=== PATIENT | male | born 1975 | race American Indian/Alaskan Native ===

== ENCOUNTER 2020-12-12 15:21 | Emergency (ER) | payer SELFPAY ==
[2020-12-12 16:41] LABS: Basophils # (Auto) 0.1 K/mm3 (0.0-0.1); Basophils % (Auto) 1.2 % (0.0-1.8); Eosinophils # (Auto) 0.1 K/mm3 (0.0-0.4); Hematocrit 42.8 % (35.5-45.6); Hemoglobin 14.6 gm/dl (11.8-15.2); Lymphocytes # (Auto) 1.5 K/mm3 (1.2-5.4); Lymphocytes % (Auto) 15.1 % (13.4-35.0); Mean Corpuscular HGB Conc 34 % (32-34); Mean Corpuscular Volume 87 fl (84-94); Monocytes # (Auto) 0.6 K/mm3 (0.0-0.8); Monocytes % (Auto) 6.6 % (0.0-7.3); Platelet Count 348 K/mm3 (140-440); Red Blood Count 4.89 M/mm3 (3.65-5.03); Red Cell Distribution Width 15.5 % (13.2-15.2)
--- NOTE | 2020-12-12 16:42 | XRay Report ---
CHEST 2 VIEWS INDICATION / CLINICAL INFORMATION: tachycardia. COMPARISON: None available. FINDINGS: SUPPORT DEVICES: None. HEART / MEDIASTINUM: No significant abnormality. LUNGS / PLEURA: No significant pulmonary or pleural abnormality. No pneumothorax. ADDITIONAL FINDINGS: Bilateral chest wall surgical clips. IMPRESSION: 1. No acute findings. Signer Name: Alistair Bueno MD Signed: 12/12/2020 4:38 PM Workstation Name: [id number]
[2020-12-12 17:07] LABS: Alanine Aminotransferase 14 units/L (7-56); Albumin 4.3 g/dL (3.9-5); BUN/Creatinine Ratio 10; Blood Urea Nitrogen 9 mg/dL (9-20); Calcium 10.2 mg/dL (8.4-10.2); Hemolysis Index 28
--- NOTE | 2020-12-12 19:37 | Emergency Department Report ---
ED General Adult HPI - General Chief complaint: Arrhythmia/Palpitations Stated complaint: HEART RACING SOB FAINT Time Seen by Provider: 12/12/20 19:32 Source: patient Mode of arrival: Ambulatory Limitations: No Limitations - History of Present Illness Initial comments: 45-year-old male patient with history of hypertension presents to emergency department complaints of dark urine, palpitations, and intermittent chest discomfort starting today. Patient states he has been eating and drinking normally. He was previously prescribed Losartan 50 mg by his primary care provider. He took himself off of the medicine approximately 2 months ago when he decided to modify his diet instead. Patient states he checks his blood pressure at home regularly and it is typically "normal." Today, patient reportedly received some "stressful news," which he suspects may be contributing to his symptoms. No recent fall, trauma, injury. No venous thromboembolism r isk factors identified on history. Denies fever, chills, headache, nausea, vomiting, diarrhea, abdominal pain, syncope. Denies all other complaints at this time. Severity scale (0 -10): 0 - Related Data Previous Rx's Medication Instructions Recorded Last Taken Type Losartan [Cozaar] 50 mg PO QDAY #10 tablet 12/12/20 Unknown Rx Allergies Allergy/AdvReac Type Severity Reaction Status Date / Time No Known Allergies Allergy Unverified 12/12/20 15:28 ED Review of Systems ROS: Stated complaint: HEART RACING SOB FAINT Other details as noted in HPI Other: GENERAL: Negative for fever, chills, weight change, anorexia, fatigue. ENT: Negative for ear pain, difficulty hearing, sore throat, nasal congestion, epistaxis. CARDIOVASCULAR: Positive for chest pain and palpitations. PULMONARY: Negative for cough, dyspnea, wheezing, orthopnea, cyanosis. GASTROINTESTINAL: Negative for abdominal pain, nausea, vomiting, diarrhea, constipation. GENITOURINARY: Positive for urine discoloration. MUSCULOSKELETAL: Negative for joint pain, joint swelling, myalgias, back pain, neck pain. NEUROLOGICAL: Negative for headache, seizure, syncope, paresthesias, weakness. INTEGUMENTARY: Negative for erythema, rash, diaphoresis, laceration, ecchymosis. HEMATOLOGICAL: Negative for hemoptysis, hematemesis, hematochezia, hematuria. PSYCHIATRIC: Negative for hallucinations, suicidal ideation, homicidal ideation, anxiety, depression. ED Past Medical Hx - Past Medical History Previous Medical History?: Yes Hx Hypertension: Yes - Surgical History Past Surgical History?: Yes Additional Surgical History: left leg surgery - Medications Home Medications: Home Medications Medication Instructions Recorded Confirmed Last Taken Type Losartan [Cozaar] 50 mg PO QDAY #10 tablet 12/12/20 Unknown Rx ED Physical Exam - General Limitations: No Limitations - Other Other exam information: General: Awake and alert. No acute distress. Head: Atraumatic, normocephalic. Eyes: EOMI. Pupils are equal and round. Normal sclera and conjunctiva. ENT: Oral mucosa is moist. Normal pharyngeal exam. Neck: Supple. No lymphadenopathy. Pulmonary: No respiratory distress. Clear to auscultation bilaterally. Cardiac: Regular rate and rhythm. Pulses are palpable and equal bilaterally. No lower extremity cyanosis or edema. Skin: Warm and dry. No rashes. Abdomen: Soft, non-tender, non-protuberant. No guarding, rigidity, or rebound. Bowel sounds are normal. No organomegaly or masses noted. Back: Normal alignment. No CVA tenderness. Extremities: Symmetrical. Full range of motion intact. Neurological: Alert and oriented, appropriately interactive, no focal deficits. Psych: Cooperative. Appropriate mood and affect. Speech is evenly metered. Thoughts are logically construed. ED Course Vital Signs 12/12/20 12/12/20 15:30 21:13 Temperature 98.9 F Pulse Rate 113 H 110 H Respiratory 20 Rate Blood Pressure 192/105 Blood Pressure 192/109 [Right] O2 Sat by Pulse 100 Oximetry ED Medical Decision Making - Lab Data Result diagrams: 12/12/20 16:22 12/12/20 16:22 - EKG Data 12/12/20 19:38 EKG shows sinus tachycardia with a ventricular rate of 101 bpm. Left axis deviation. Normal ID interval. Normal QT interval. Poor R wave progression. Left atrial enlargement. No ST segment changes. Over read by attending emergency physician, who agrees with this interpretation. - Medical Decision Making Differential diagnosis including but not limited to: acute coronary syndrome, cardiac arrhythmia, pericarditis, pericardial effusion/cardiac tamponade, dehydration, electrolyte abnormality, hypoglycemia, anemia, rhabdomyolysis, urinary tract infection Patient presents to the emergency department with signs and/or symptoms that rebecca se low risk clinical suspicion for pulmonary embolism. The patient has none of the following clinical criteria: age >50, room air O2 saturation <94%, history of DVT/PE, recent trauma/surgery, hemoptysis, exogenous hormone use, or signs/symptoms of DVT. As a result, this patient has very low probability of pulmonary embolism and further testing is not indicated. On re-evaluation, the patient is well-appearing, vital signs are stable, and pain is controlled. EKG without overt evidence of STEMI, Brugada syndrome, delta wave, significantly prolonged QT, or life-threatening arrhythmia. Supervising physician is in agreement with EKG interpretation. Initial troponin within normal limits. Low clinical suspicion for other life-threatening intrathoracic pathology including but not limited to: pulmonary embolism, aortic aneurysm/dissection, pneumothorax, or pneumonia. The patient is at low risk ( 0.9%-2.7%) of experiencing a major cardiac event within the next six weeks according to the HEART score guidelines. The patient has no known history of coronary artery disease and is therefore a candidate for risk stratification using the HEART pathway. It has been explained to the patient that the HEART score/pathway are adjunct decision-making tools and are not designed to replace clinical judgment. Patient will undergo additional testing as recommended by the HEART pathway guidelines. Initial and repeat troponin both within normal limits. Urinalysis is normal. Remainder of labs are unremarkable. Tachycardia resolved and blood pressure improved after one-time dose of Losartan, which patient was previously prescribed. Repeat heart rate 69 beats per minute. Patient will be discharged home with refill of his prescription and referral to both primary care provider and cardiology for close outpatient follow-up. Strict return precautions provided. Discussed the importance of prompt PCP follow-up. Additionally, it has been explained to the patient that the primary purpose of this evaluation was to identify whether or not an acute coronary syndrome was present, and that the results of todays evaluation do not reliably exclude underlying coronary artery disease. Patient expressed understanding and was given the opportunity to ask questions, all of which were satisfactorily answered prior to discharge home. Written instructions and appropriate prescriptions/referrals provided. Critical care attestation.: If time is entered above; I have spent that time in minutes in the direct care of this critically ill patient, excluding procedure time. ED Disposition Clinical Impression: Palpitations, History of hypertension Disposition: DC-01 TO HOME OR SELFCARE Is pt being admited?: No Does the pt Need Aspirin: No Condition: Stable Instructions: Palpitations, Dfly-mn-Ybut Additional Instructions: Take Losartan as previously directed. Rest. Drink plenty of fluids. Avoid excessive caffeine/sugar/sodium intake. Follow-up with primary care provider and display trimmer this week. Call tomorrow to schedule an appointment. See referral information below. Return to the emergency department immediately for new or worsening symptoms. Prescriptions: Losartan [Cozaar] 50 mg PO QDAY #10 tablet Referrals: KASH BRANDT MD [Staff Physician] - 3-[address] [facility] [Provider Group] - 3-5 Days [facility] [Provider Group] - 3-5 Days KIRSTEN LOPES MD [Staff Physician] - 3-5 Days HEART Score - HEART Score History: Slightly suspicious EKG: Non-specific Age: 45-65 Risk factors: 1-2 risk factors Troponin: Troponin T < 0.010 ng/mL (0.00-0.029) 12/12/20 19:51 Troponin: < normal limit HEART Score: 3 - Critical Actions Critical Actions: 0-3 pts:0.9-1.7%risk of adverse cardiac event.Candidate for discharge
[2020-12-12] MEDS ORDERED: LOSARTAN 50 MG TAB PO ONE (19:47)
[2020-12-12 20:29] LABS: Bilirubin,Urine NEG (Negative); Blood,Urine MOD (Negative); Color,Urine Yellow (Yellow); Mucus,Urine FEW /HPF; Protein,Urine <15 mg/dL mg/dL (Negative); Urobilinogen,Urine < 2.0 mg/dL (<2.0)
[2020-12-12 20:38] LABS: Amphetamine Screen,Urine Negative; Benzodiazepines Screen,Urine Negative; Cannabinoid Screen,Urine Negative; Cocaine Screen,Urine Negative; Methadone Screen,Urine Negative; Opiate Screen,Urine Negative
[2020-12-12 22:07] VITALS: BP 169/106
--- NOTE | 2020-12-14 09:46 | Electrocardiograph Report ---
[facility] Test Date: 2020-12-12 Test Time: 15:33:40 Pat Name: FANY TOBAR Department: Room: Gender: M [employer] F[employer] Player: DEEPAK : 1975 Requested By: KIRAN SMYTH Order Number: [id number] Reading MD: Samy Castillo Measurements Intervals [place] Rate: 101 P: 41 NV: 150 QRS: -69 QRSD: 98 T: 48 QT: 346 QTc: 450 Interpretive Statements Sinus tachycardia RSR' IN V1 OR V2, PROBABLY NORMAL VARIANT Left atrial enlargement Left anterior fascicular block No previous ECG available for comparison Electronically Signed On 12-14-2020 9:45:31 EDT by Samy Castillo
== END 2020-12-12 22:00 | disposition home or self-care (01) ==
LOC: ED 15:21
DX: R00.2 Palpitations (principal); I10 Essential (primary) hypertension; Z79.899 Other long term (current) drug therapy; Z98.890 Other specified postprocedural states
CPT/HCPCS: 36415; 71046; 80053; 80307; 81001; 82550; 83735; 84443; 84484; 85025; 93005